=== PATIENT | male | born 1980 | race Caucasian/White ===

== ENCOUNTER 2019-10-31 | Emergency (ER) | payer OTHER ==
[2019-10-31] MEDS ORDERED: ALLOPURINOL300 MG PO (11:12)
[2019-10-31] MEDS ORDERED: MOBIC7.5 M1 PO (11:12)
[2019-10-31] MEDS ORDERED: VIAGRA100 MG PO (11:12)
[2019-10-31] MEDS ORDERED: DOXYCYCL HYC100 MG PO (11:12)
[2019-10-31] MEDS ORDERED: GABAPENTIN600 MG PO (11:13)
[2019-10-31 12:29] LABS: URINE BILIRUBIN - DIPSTICK NEGATIVE (NEGATIVE); URINE BLOOD DIPSTICK NEGATIVE (NEGATIVE); URINE CLARITY CLEAR; URINE COLOR YELLOW; URINE GLUCOSE - DIPSTICK NEGATIVE (NEGATIVE); URINE KETONE NEGATIVE (NEGATIVE); URINE LEUK ESTERASE NEGATIVE (Negative); URINE NITRITE - DIPSTICK NEGATIVE (Negative); URINE PROTEIN - DIPSTICK NEGATIVE (NEG-TRACE)
[2019-10-31 13:20] LABS: BARBITURATES NEGATIVE (NEGATIVE); COCAINE NEGATIVE (NEGATIVE); METHADONE NEGATIVE (NEGATIVE); OXCYCODONE NEGATIVE (NEGATIVE); TETRAHYDROCANNABIONOL NEGATIVE (NEGATIVE); TRICYLIC ANTIDEPRESSANTS NEGATIVE (NEGATIVE)
[2019-10-31] MEDS ORDERED: MEDDOSEPAK PO (13:39)
[2019-10-31] MEDS ORDERED: FLEXERIL PO (13:39)
== END 2019-10-31 14:14 | disposition home or self-care (01) | DRG 552 ==
DX: M62.830 Muscle spasm of back (principal); I10 Essential (primary) hypertension